=== PATIENT | female | born 1950 | race African-American/Black ===

== ENCOUNTER 2016-12-22 01:41 | Emergency (ER) | payer MEDICARE ==
[2016-12-22] MEDS ORDERED: Metoprolol Tartrate 5 MG/5 ML VIAL ONE (01:58)
[2016-12-22] MEDS ORDERED: Nitroglycerin 0.4 MG TAB (25 Tab Bottle) ONE (01:58)
[2016-12-22 02:18] LABS: Hematocrit 34.7 % (36.0-47.0); Mean Platelet Volume 9.7 fL (7.4-10.4); Neutrophil 59 % (42-75); Nucleated RBC 1 % (0); Red Blood Cell (RBC) Count 3.63 mill/uL (4.20-5.40); White Blood Cell (WBC) Count 9.9 thou/uL (4.8-10.8)
[2016-12-22 02:32] LABS: Troponin I 0.018 ng/mL (< 0.028)
[2016-12-22 02:34] LABS: ALT (SGPT) 20 U/L (0-55); AST (SGOT) 20 U/L (5-34); Alkaline Phosphatase 91 U/L (40-150); Anion Gap 18 mmol/L (10-20); BUN (Urea Nitrogen) 41 mg/dL (9.8-20.1); Bilirubin, Total 0.3 mg/dL (0.2-1.2); CK (CPK) 65 U/L (29-168); Calc. Creatinine Clearance 0 mL/min (70-130); Calcium 9.5 mg/dL (7.8-10.44); Carbon Dioxide 23 mmol/L (23-31); Chloride 104 mmol/L (98-107); Estimated GFR-MDRD 6; Globulin 3.7 g/dL (2.4-3.5); Protein, Total 7.3 g/dL (5.8-8.1)
--- NOTE | 2016-12-22 08:31 | RAD ---
SINGLE VIEW OF THE CHEST: COMPARISON: None. HISTORY: Sharp left-sided chest pain through the shoulder. FINDINGS: A single view of the chest shows a normal-size cardiomediastinal silhouette. There is no evidence o f consolidation, mass, or pleural effusion. A stent projects over the left chest wall. IMPRESSION: No evidence of acute cardiopulmonary disease. POS: [facility]
== END 2016-12-22 04:22 | disposition short-term general hospital (02) ==
LOC: NAV ERS 01:41
DX: R07.9 Chest pain, unspecified (principal); D69.6 Thrombocytopenia, unspecified; E11.22 Type 2 diabetes mellitus with diabetic chronic kidney disease; I12.0 Hypertensive chronic kidney disease with stage 5 chronic kidney disease or end stage renal disease; N18.6 End stage renal disease; E78.5 Hyperlipidemia, unspecified; E78.00 Pure hypercholesterolemia, unspecified; F41.9 Anxiety disorder, unspecified; Z79.899 Other long term (current) drug therapy
CPT/HCPCS: 36415; 71010; 80053; 82550; 82553; 84484; 85025; 93005; 94760; 96374